=== PATIENT | female | born 1985 | race African-American/Black ===

== ENCOUNTER 2022-02-26 08:42 | Emergency (ER) | payer BC ==
[~2022-02-26] VITALS: Ht 167.6 cm; Wt 85.0 kg
[2022-02-26 08:58] VITALS: BP 114/74
[2022-02-26] MEDS ORDERED: AMOX1TAB61 PO (09:17)
--- NOTE | 2022-02-26 09:18 | PHYS DOC ---
Past Medical History Past Surgical History: No Surgical History Smoking Status: Never Smoker Alcohol Use: None General Adult EDM: Chief Complaint: ANIMAL BITE HPI: HPI: Patient is a 36 year old female who presents with patient and her son have a 3-month-old pitbull Labrador mix puppy and the dog got his foot caught in the kennel today. Patient was trying to help her son get the puppy's foot when the dog turned and bit the son causing a laceration to the left ring finger but then turned and got her right dorsal and lateral hand/wrist area. She has very small puncture wounds. Patient states the puppy is up-to-date on vaccinations. She does not know when her last tetanus shot was. No deformities noted. Patient rates her pain an 8 out of 10 at this time. She denies any past medical history. She denies numbness or tingling, focal weakness. Review of Systems: Review of Systems: Constitutional: Denies fever or chills. [] Eyes: Denies change in visual acuity. [] HENT: Denies nasal congestion or sore throat. [] Respiratory: Denies cough or shortness of breath. [] Cardiovascular: Denies chest pain or edema. [] GI: Denies abdominal pain, nausea, vomiting, bloody stools or diarrhea. [] : Denies dysuria. [] Musculoskeletal: Denies back pain or joint pain. +Bilateral hand pain[] Integument: Denies rash. + Dog bite to right hand and abrasion to left hand[] Neurologic: Denies headache, focal weakness or sensory changes. [] Endocrine: Denies polyuria or polydipsia. [] Lymphatic: Denies swollen glands. [] Psychiatric: Denies depression or anxiety. [] Heart Score: C/O Chest Pain: No Current Medications: Current Medications Medications (Trade) Dose Ordered Sig/Christina Start Time Stop Time Status Last Admin Dose Admin Neomycin/ Polymyxin/ Bacitracin (Triple Antibiotic Ointment) 2 pkt 1X ONCE 02/26/22 09:15 02/26/22 09:16 UNV Allergies: Allergies: Allergies Coded Allergies Type Severity Reaction Last Updated Verified No Known Drug Allergies 02/26/22 No Physical Exam: PE: Constitutional: Well developed, well nourished, no acute distress, non-toxic appearance. [] HENT: Normocephalic, atraumatic, bilateral external ears normal, oropharynx moist, no oral exudates, nose normal. [] Eyes: PERRLA, EOMI, conjunctiva normal, no discharge. [] Neck: Normal range of motion, no tenderness, supple, no stridor. [] Cardiovascular:Heart rate regular rhythm, no murmur [] Lungs & Thorax: Bilateral breath sounds clear to auscultation [] Abdomen: Bowel sounds normal, soft, no tenderness, no masses, no pulsatile masses. [] Skin: Warm, dry, no erythema, no rash. Small puncture wounds to right dorsal and lateral hand and wrist area. Left hand abrasions. [] Back: No tenderness, no CVA tenderness. [] Extremities: right dorsal hand tenderness, no cyanosis, no clubbing, ROM intact, no edema. [] Neurologic: Alert and oriented X 3, normal motor function, normal sensory function, no focal deficits noted. [] Psychologic: Affect normal, judgement normal, mood normal. [] Current Patient Data: Vital Signs: Vital Signs Date Time Temp Pulse Resp B/P (MAP) Pulse Ox O2 Delivery O2 Flow Rate FiO2 02/26/22 08:58 98.0 84 20 114/74 (87) 99 Room Air 98.0 EKG: EKG: [] Radiology/Procedures: Radiology/Procedures: [] Course & Med Decision Making: Course & Med Decision Making Pertinent Labs and Imaging studies reviewed. (See chart for details) See HPI. Alert and oriented x4. Speaks in full clear sentences. Ambulatory steady gait. Radial pulse strong present. Full range of motion of hands bilaterally without any joint deformity. Some abrasions on left hand but there are small puncture wounds to the right dorsal and lateral hand/wrist area. Full range of motion of the wrist. Skin pink warm and dry. Slight swelling noted. Tenderness around bites. Cap refill less than 2 seconds. Sensations intact. Full strength in on air talent. Patient received a tetanus shot in the ED. Wounds are cleaned with chlorhexidine and saline. Antibiotic ointment is placed by RN and wounds are wrapped. [] Dragon Disclaimer: Dragon Disclaimer: This electronic medical record was generated, in whole or in part, using a voice recognition dictation system. Departure Departure Impression: Primary Impression: Animal bite Disposition: HOME / SELF CARE / HOMELESS Condition: STABLE Referrals: UNKNOWN PCP NAME (PCP) Patient Instructions: Animal Bite Additional Instructions: Take antibiotic as prescribed until it is fully gone. Keep wounds clean with soap and water and dressed. Place antibiotic ointment over puncture wounds. Watch for signs of infection such as redness, drainage or increasing pain. Use ice and elevation. Follow-up with your primary care provider if needed. Scripts Amoxicillin/Potassium Clav (AUGMENTIN [id number] TABLET) 1 Each Tablet 1 TAB PO BID for 10 Days, #20 TAB 0 Refills Prov: BRANDI SCHULZ APRN 02/26/22 BRANDI SCHULZ APRN Feb 26, 2022 09:18
[2022-02-26] MEDS: NEOMY/BACITR/POLYMYXIN OINT PACKET. TP ONE (09:22)
[2022-02-26] MEDS: DIPHTH,PERTUSS(ACELL),TET TOX 0.5 ML DISP.SYRIN. VAX IM ONE (09:24)
[2022-02-26] MEDS: IBUPROFEN 200 MG TABLET. PO ONE (09:26)
== END 2022-02-26 09:32 | disposition home or self-care (01) ==
LOC: ER 08:42
DX: S61.215A Laceration without foreign body of left ring finger without damage to nail, initial encounter (principal); W54.0XXA Bitten by dog, initial encounter; Y93.89 Activity, other specified; Y92.89 Other specified places as the place of occurrence of the external cause; Y99.8 Other external cause status
CPT/HCPCS: 90471; 90715; 99283